=== PATIENT | male | born 1955 | race Caucasian/White ===

== ENCOUNTER 2025-06-10 01:09 | Inpatient (IN) | payer MEDICARE, OTHER ==
[~2025-06-10] VITALS: Ht 165.1 cm; Wt 72.1 kg
[2025-06-10 01:40] LABS: PLATELET COUNT (AUTO) 149 K/uL (152-348); RED BLOOD CELL COUNT(AUTO) 5.02 MIL/uL (4.06-5.63); RED CELL DISTRIBUTION WIDTH 13.6 % (12.1-16.2); WHITE BLOOD COUNT (AUTO) 7.2 K/uL (3.6-10.2)
[2025-06-10 01:50] LABS: ASPARTATE AMINOTRANSFERASE 23.0 U/L (15-37); CREATININE 0.9 mg/dL (0.6-1.3); SODIUM SERUM 136.0 mmol/L (136-145); TOTAL PROTEIN, SERUM 7.5 g/dL (6.4-8.2); UREA NITROGEN, BLOOD 15.0 mg/dL (7-18)
[2025-06-10] MEDS ORDERED: INSULIN REGULAR, HUMAN 1000 UNIT/10 ML VIAL ONE (02:13)
[2025-06-10] MEDS: IV NS 1000 ML 1,000 ML IV ONE (02:15)
[2025-06-10] MEDS: INSULIN REGULAR, HUMAN 1000 UNIT/10 ML VIAL SQ ONE (02:19)
[2025-06-10 04:18] LABS: *BILIRUBIN,URIN NEGATIVE (NEGATIVE); *BLOOD, URINE NEGATIVE (NEGATIVE); *CLARITY,URINE CLEAR (CLEAR); *COLOR,URINE YELLOW (YELLOW); *KETONES,URINE 2+ (NEGATIVE); *PROTEIN,URINE NEGATIVE (NEGATIVE); *UROBILINOGEN,URINE 0.2 E.U./dl (NORMAL); LEUKOCYTE ESTERASE ,URINE NEGATIVE (NEGATIVE); NITRITE, URINE NEGATIVE (NEGATIVE); UGLUCOSE 3+ (NEGATIVE)
[2025-06-10] MEDS ORDERED: ACET-3117 PO (05:05)
[2025-06-10] MEDS ORDERED: ASPI81TA31 PO (05:05)
[2025-06-10] MEDS ORDERED: LOSA25TA3 PO (05:05)
[2025-06-10] MEDS ORDERED: AMLO-212 PO (05:05)
[2025-06-10] MEDS ORDERED: [UNRECOGNIZED DRUG - OTHER] PO (05:05)
[2025-06-10] MEDS ORDERED: OLAN2.5T3 PO (05:05)
[2025-06-10] MEDS ORDERED: ONDANSETRON 4 MG/2 ML VIAL IV PRN (06:00)
[2025-06-10] MEDS ORDERED: ACETAMINOPHEN 325 MG TABLET PO PRN (06:00)
[2025-06-10] MEDS ORDERED: DEXTROSE 50% 50 ML DISP.SYRIN IV PRN (06:00)
[2025-06-10] MEDS ORDERED: ACETAMINOPHEN 650 MG SUPP.RECT RC PRN (06:00)
[2025-06-10] MEDS ORDERED: REMEDY ESSENTIAL ZINC PASTE 113 GM TP PRN (06:00)
[2025-06-10] MEDS ORDERED: [UNRECOGNIZED DRUG - OTHER] PO SCH (09:00)
[2025-06-10] MEDS ORDERED: [UNRECOGNIZED DRUG - OTHER] PO SCH (09:00)
[2025-06-10] MEDS: AMLODIPINE 5 MG TABLET PO SCH (10:36)
[2025-06-10] MEDS: ASPIRIN 81 MG TAB.CHEW PO SCH (10:36)
[2025-06-10] MEDS: BLOOD SUGAR DIAGNOSTIC 1 EACH STRIP VI SCH (10:36)
[2025-06-10] MEDS: LOSARTAN POTASSIUM 25 MG TABLET PO SCH (10:37)
[2025-06-10] MEDS: IV NS 1000 ML 1,000 ML IV PRN (10:41)
[2025-06-10] MEDS: OLANZAPINE 2.5 MG TABLET PO SCH (10:46)
[2025-06-10 10:51] VITALS: BP 124/85; TEMP 98.2; O2SAT 96
[2025-06-10 16:06] VITALS: BP 128/52; TEMP 98; O2SAT 97
[2025-06-10 19:25] VITALS: BP 122/67; TEMP 98.1; O2SAT 95
[2025-06-10] MEDS: INSULIN REGULAR, HUMAN 1000 UNIT/10 ML VIAL SQ PRN (21:31)
[2025-06-10] MEDS ORDERED: INSULIN GLARGINE,HUM 300 UNITS/3 ML CARTRIDGE SQ ONE (22:27)
[2025-06-10] MEDS: INSULIN GLARGINE,HUM 300 UNITS/3 ML CARTRIDGE SQ SCH (23:18)
[2025-06-11 05:12] VITALS: BP 119/60; TEMP 97.5; O2SAT 90
[2025-06-11 06:53] LABS: PLATELET COUNT (AUTO) 143 K/uL (152-348); RED BLOOD CELL COUNT(AUTO) 4.64 MIL/uL (4.06-5.63); RED CELL DISTRIBUTION WIDTH 13.4 % (12.1-16.2); WHITE BLOOD COUNT (AUTO) 6.3 K/uL (3.6-10.2)
[2025-06-11 06:54] LABS: ASPARTATE AMINOTRANSFERASE 37 U/L (15-37); CREATININE 0.6 mg/dL (0.6-1.3); SODIUM SERUM 138 mmol/L (136-145); TOTAL PROTEIN, SERUM 6.5 g/dL (6.4-8.2); UREA NITROGEN, BLOOD 10 mg/dL (7-18)
[2025-06-11 07:29] LABS: ACETONE, SERUM NEGATIVE (NEGATIVE)
[2025-06-11 08:34] VITALS: BP 126/71; TEMP 97.4; O2SAT 96
[2025-06-11] MEDS: CYANOCOBALAMIN 1000 MCG/ML VIAL IM SCH (09:35)
[2025-06-11] MEDS: METFORMIN HCL 500 MG TABLET PO SCH (09:35)
[2025-06-11 12:00] VITALS: BP 131/57; TEMP 97.6; O2SAT 98
[2025-06-11] MEDS: MUPIROCIN 2% OINT 22 GM TUBE TP SCH (14:41)
[2025-06-11 16:00] VITALS: BP 145/62; TEMP 97.8; O2SAT 97
[2025-06-11 19:00] VITALS: BP 126/70; TEMP 97.6; O2SAT 98
[2025-06-12 06:00] VITALS: BP 121/58; TEMP 97.7; O2SAT 94
[2025-06-12 11:05] VITALS: BP 120/70; TEMP 98; O2SAT 96
[2025-06-12 15:57] VITALS: BP 102/58; TEMP 97.8; O2SAT 95
[2025-06-12 19:51] VITALS: BP 126/54; TEMP 97.8; O2SAT 95
[2025-06-13 06:06] VITALS: BP 125/77; TEMP 98; O2SAT 96
[2025-06-13 06:56] LABS: PLATELET COUNT (AUTO) 162 K/uL (152-348); RED BLOOD CELL COUNT(AUTO) 4.87 MIL/uL (4.06-5.63); RED CELL DISTRIBUTION WIDTH 14.1 % (12.1-16.2); WHITE BLOOD COUNT (AUTO) 6.9 K/uL (3.6-10.2)
[2025-06-13 07:23] LABS: ASPARTATE AMINOTRANSFERASE 34.0 U/L (15-37); CREATININE 0.7 mg/dL (0.6-1.3); SODIUM SERUM 143.0 mmol/L (136-145); TOTAL PROTEIN, SERUM 7.4 g/dL (6.4-8.2); UREA NITROGEN, BLOOD 15.0 mg/dL (7-18)
[2025-06-13 12:45] VITALS: BP 125/63; TEMP 97.9; O2SAT 95
[2025-06-13] MEDS ORDERED: GLIP10TA11 PO (12:50)
[2025-06-13] MEDS ORDERED: MENT113O TP (12:50)
[2025-06-13] MEDS ORDERED: Blood Sugar Diagnostic VI (12:50)
[2025-06-13] MEDS ORDERED: DEXT50DI8 IV (12:50)
[2025-06-13] MEDS ORDERED: METF-440 PO (12:50)
[2025-06-13] MEDS ORDERED: MUPI22OI2 TP (12:50)
[2025-06-13] MEDS ORDERED: INSU100V28 SQ (12:50)
[2025-06-13] MEDS ORDERED: MULT-1045 PO (12:50)
== END 2025-06-13 13:35 | DRG 638 ==
LOC: ER 01:23 → MEDSURG3 05:15
PROVIDERS: ADMIT Registered Nurse Psychiatric/Mental Health; ATTEND Internal Medicine
PROC: 0HDRXZZ Extraction of Toe Nail, External Approach (ICD-10-PCS; principal; 2025-06-11)
DX: E11.65 Type 2 diabetes mellitus with hyperglycemia (principal); D68.59 Other primary thrombophilia; F01.54 Vascular dementia, unspecified severity, with anxiety; F01.53 Vascular dementia, unspecified severity, with mood disturbance; E11.9 Type 2 diabetes mellitus without complications; R55 Syncope and collapse; I10 Essential (primary) hypertension; S91.209A Unspecified open wound of unspecified toe(s) with damage to nail, initial encounter; W06.XXXA Fall from bed, initial encounter; S91.202A Unspecified open wound of left great toe with damage to nail, initial encounter; W18.30XA Fall on same level, unspecified, initial encounter; Y92.092 Bedroom in other non-institutional residence as the place of occurrence of the external cause; L60.1 Onycholysis; E11.40 Type 2 diabetes mellitus with diabetic neuropathy, unspecified; F25.9 Schizoaffective disorder, unspecified; Z79.82 Long term (current) use of aspirin; Z79.899 Other long term (current) drug therapy; I69.921 Dysphasia following unspecified cerebrovascular disease; I69.920 Aphasia following unspecified cerebrovascular disease; F32.A Depression, unspecified; E88.09 Other disorders of plasma-protein metabolism, not elsewhere classified; E66.3 Overweight; E53.8 Deficiency of other specified B group vitamins; E78.5 Hyperlipidemia, unspecified; M21.962 Unspecified acquired deformity of left lower leg; E66.9 Obesity, unspecified; Z68.26 Body mass index [BMI] 26.0-26.9, adult; N42.9 Disorder of prostate, unspecified; R00.1 Bradycardia, unspecified
CPT/HCPCS: 36415; 70450; 71045; 72170; 73620; 83735; 84100; 84443; 85025; 93005; 93307; A4606; A4663; C1758; G0378; J1815; J3420; J7040